=== PATIENT | male | born 1960 | race Caucasian/White ===

== ENCOUNTER 2023-10-26 13:38 | Outpatient (CLI) | payer MEDICAID | END 2023-10-26 23:59 | disposition home or self-care (01) | LOC: RAD 13:38 | PROVIDERS: ATTEND Family Medicine | DX: Z12.2 Encounter for screening for malignant neoplasm of respiratory organs (principal); K76.0 Fatty (change of) liver, not elsewhere classified; I25.10 Atherosclerotic heart disease of native coronary artery without angina pectoris | CPT/HCPCS: 71271 ==

== ENCOUNTER 2023-12-01 12:44 | Emergency (ER) | payer MEDICAID ==
[~2023-12-01] VITALS: Ht 177.8 cm; Wt 81.8 kg
[2023-12-01 13:47] VITALS: BP 153/77; PULSE 131; RESP 18; TEMP 97.8; O2SAT 96
[2023-12-01] MEDS ORDERED: AMOX-117 PO (16:40)
== END 2023-12-01 17:11 | disposition home or self-care (01) ==
LOC: ER 12:45
DX: S61.232A Puncture wound without foreign body of right middle finger without damage to nail, initial encounter (principal); Z88.8 Allergy status to other drugs, medicaments and biological substances; Z88.1 Allergy status to other antibiotic agents; W54.0XXA Bitten by dog, initial encounter; Y93.89 Activity, other specified; Y92.89 Other specified places as the place of occurrence of the external cause; Y99.8 Other external cause status
CPT/HCPCS: 73130; 99283